=== PATIENT | male | born 1955 | race Caucasian/White ===

== ENCOUNTER → 2020-02-04 08:51 | Outpatient (CLI) | payer OTHER, SELFPAY ==
--- NOTE | ~2020-02-04 | CT_ITS ---
EXAMINATION: CT abdomen pelvis w con DATE: 02/04/2020 09:26 INDICATION: Left lower quadrant pain TECHNIQUE: Computed tomography (CT) of the abdomen and pelvis was performed with 100 cc Omnipaque 350 intravenous contrast. The dose-length product was 708.52 mGy-cm. Automated exposure control and iter ative reconstruction technique were employed. COMPARISON: None. FINDINGS: Lung bases unremarkable. Heart size normal. No significant pleural or pericardial effusion. The liver, spleen, pancreas, adrenal glands and right kidney are unremarkable. There is a subcentimet er hypodensity of the left kidney, most likely benign cysts. Gallbladder is present. Nonobstructive b owel gas pattern. Normal appendix. Evaluation of the pelvis limited by significant streak artifact fr om bilateral hip arthroplasties. No definite evidence for diverticulitis. Small fat-containing inguin al hernias. Moderate atherosclerosis without aneurysm. No lymphadenopathy. No acute osseous abnormali ty. There is moderate spondylosis at L5-S1. IMPRESSION: 1. No acute abdominal abnormality. No findings to account for patient's symptoms. Reviewed, dictated and finalized at location A. IMPRESSION: 1. No acute abdominal abnormality. No findings to account for patient's symptom s.
[2020-02-04 09:15] LABS: Estimated Glomerular Filt Rate > 60
== END ==
PROVIDERS: Visit Provider Family Medicine
DX: R10.32 Left lower quadrant pain (principal)
CPT/HCPCS: 36415; 74177; Q9967

== ENCOUNTER 2022-07-11 00:27 | Day surgery (SDC) | payer OTHER, MEDICARE, SELFPAY ==
[2022-06-28 13:07] VITALS: BMI 22.9
[2022-07-11 06:20] VITALS: BP 126/72; PULSE 64; RESP 18; TEMP 36.5; O2SAT 99; BMI 22.8
[2022-07-11] MEDS: LACTATED RINGERS 1,000 ML 150 ML IV CONT (06:23)
--- NOTE | 2022-07-11 07:13 | P.PNAN_ITS ---
Anes - Initial Pre Proc Eval Procedure: Operation Date: 07/11/22 07:30 Proposed Procedures p Screening Colonoscopy - Bernabe Mazariegos MD Date/Time: 07/11/22 07:13 Surgeon: Bernabe Mazariegos MD Pre Op Diagnosis: neoplasm screening Patient Data Age: 67 Gender: M Height: 1.85 m Weight: 78.8 kg Last Vital Signs Temp 97.7 F 07/11/22 06:20 Pulse 64 07/11/22 06:20 Resp 18 07/11/22 06:20 BP 126/72 07/11/22 06:20 Pulse Ox 99 07/11/22 06:20 O2 Del Method Room Air 07/11/22 06:20 Allergies Allergy/AdvReac Type Severity Reaction Status Date / Time No Known Allergies Allergy Unknown Verified 07/11/22 06:18 Patient hx anesthesia problems: none Family hx anesthesia problems: none Results Review: All pre-operative results and documents have been reviewed as part of the pre- operative evaluation. PMFSH Past Medical History Medical History HLD (hyperlipidemia) Surgical History Surgical History History of bilateral hip replacements History of release of tendon Family History Family History Mother Lung cancer Father Suicide Sibling Cancer Social History Social History (Updated 05/23/22 @ 15:11 by CESAR Harris) Smoking packs per day: 0.5 Smoking cigarettes per day: 10.0 Years smoked: 40 Smoking pack-years: 20.00 Smoking status: Current every day smoker Tobacco type: cigars Second hand tobacco smoke exposure: Yes Additional smoking assessment comments: 1-2 cigars daily Alcohol intake: never Substance use: never Substance use type: does not use Living arrangements: with family Spiritual care concerns: No Anes - Eval Final PreProcedure Day of Procedure 07/11/22 07:13 Patient weight: normal Heart: regular rate and rhythm Lungs: clear to auscultation Airway: Mallampati scale class II Neurological: alert and oriented Last oral intake: >/= 8 hours ASA classification: II Emergent: no Anesthetic plan: proceed Anesthesia type and monitoring: general GIVS and standard monitoring Results Review: All pre-operative results and documents have been reviewed as part of the pre- operative evaluation. Informed Consent: The patient's anesthetic plan and its attendant risks and benefits were discussed with the patient/family/POA. Questions were solicited and answers provided to the satisfaction of the patient/family/POA.
--- NOTE | 2022-07-11 07:19 | PM.IMHP ---
H&P: HPI History of Present Illness Date/Time: 07/11/22 07:19 Chief Complaint: Neoplasia screening. Narrative: This is a 67-year-old white male patient presents for screening colonoscopy. Patient's current weight appetite and bowel movements are normal. He denies abdominal pain. He has had no bleeding. Family history is noncontributory. Previous colonoscopy 2008 was unremarkable. Review of Systems Review of Systems: Review of systems noncontributory. PMFSH Past Medical History Medical History (Updated 07/11/22 @ 07:23 by Bernabe Mazariegos MD) HLD (hyperlipidemia) Surgical History Surgical History History of bilateral hip replacements History of release of tendon Family History Family History Mother Lung cancer Father Suicide Sibling Cancer Social History Social History (Updated 05/23/22 @ 15:11 by CESAR Harris) Smoking packs per day: 0.5 Smoking cigarettes per day: 10.0 Years smoked: 40 Smoking pack-years: 20.00 Smoking status: Current every day smoker Tobacco type: cigars Second hand tobacco smoke exposure: Yes Additional smoking assessment comments: 1-2 cigars daily Alcohol intake: never Substance use: never Substance use type: does not use Living arrangements: with family Spiritual care concerns: No Meds Home Medications and Allergies Allergies Allergy/AdvReac Type Severity Reaction Status Date / Time No Known Allergies Allergy Unknown Verified 07/11/22 06:18 Vital Signs Vital Signs - 24 hr 07/11/22 06:20 Temperature 97.7 F Pulse Rate 64 Respiratory Rate 18 Blood Pressure 126/72 Pulse Oximetry 99 Oxygen Delivery Room Air Exam Narrative: Physical exam reveals patient to be alert. Vital signs stable. HEENT exam is unremarkable. Lungs are clear to auscultation and percussion. Heart is without murmur or extra sounds. Abdominal exam bowel sounds present soft nontender with no organomegaly. Digital external rectal exam is normal. Assessment and Plan Assessment and plan (1) Encounter for screening colonoscopy: Code(s): Z12.11 - Encounter for screening for malignant neoplasm of colon Status: Acute Assessment and Plan: Patient presents today for screening colonoscopy. He appears to be average risk for colon polyps.
[2022-07-11 07:57] VITALS: BP 100/58; PULSE 56; RESP 20; O2SAT 95
[2022-07-11 08:10] VITALS: BP 109/69; PULSE 64; RESP 22; O2SAT 96
[2022-07-11 08:20] VITALS: BP 127/72; PULSE 57; RESP 18; O2SAT 99
== END 2022-07-11 08:23 | disposition home or self-care (01) ==
PROVIDERS: PCP Family Medicine; Visit Provider Internal Medicine Gastroenterology
PROC: 0DJD8ZZ Inspection of Lower Intestinal Tract, Via Natural or Artificial Opening Endoscopic (ICD-10-PCS; CPT 45378; principal; 2022-07-11 07:30)
DX: Z12.11 Encounter for screening for malignant neoplasm of colon (principal); D12.5 Benign neoplasm of sigmoid colon; K64.8 Other hemorrhoids; E78.5 Hyperlipidemia, unspecified; F17.210 Nicotine dependence, cigarettes, uncomplicated
CPT/HCPCS: 45385; 88305; J2704; J7120

== ENCOUNTER → 2022-09-01 07:46 | Outpatient (CLI) | payer OTHER, MEDICARE, SELFPAY ==
--- NOTE | ~2022-09-01 | CT_ITS ---
EXAMINATION: CT lung screening DATE: 09/01/2022 08:20 INDICATION: Personal history nicotine dependence, current smoker with 20 pack year history TECHNIQUE: Computed tomography (CT) of the chest was performed without intravenous contrast. The dose -length product (DLP) was 102.54 mGy-cm. Automated exposure control and iterative reconstruction tech [employer] were employed. COMPARISON: None FINDINGS: There is mild emphysema. There is a 4 mm nodule of the right lower lobe on image 75. There are is a triangular nodule in the right major fissure on image 76. There are smaller scattered pulmon elvira nodules which measure 1 to 2 mm. The lungs are free of focal airspace opacities. No pleural effus ion or pneumothorax. There are mild subpleural reticular and groundglass opacities with a lower lung zone predominance which can reflect chronic interstitial lung disease in a pattern of nonspecific int erstitial pneumonia (NSIP). There is moderate thoracic spondylosis. IMPRESSION: 1. Lung-RADS category 2: Benign appearance or behavior. Continue annual screening with noncontrast lo w-dose chest CT in 12 months. Reviewed, dictated and finalized at location B. IMPRESSION: 1. Lung-RADS category 2: Benign appearance or behavior. Continue annual screeni ng with noncontrast low-dose chest CT in 12 months.
--- NOTE | ~2022-09-01 | US_ITS ---
EXAMINATION: US aorta [facility] DATE: 09/01/2022 08:23 INDICATION: Abdominal aortic aneurysm screening, tobacco use, hypercholesterolemia TECHNIQUE: Grayscale, color Doppler, and pulsed Doppler images of the aorta and common iliac arteries were obtained. COMPARISON: None. FINDINGS: Maximum vascular dimensions are as follows: Proximal aorta: 2.9 cm Mid aorta: 2.1 cm Distal aorta: 2.2 cm Right common iliac artery: 1.3 cm Left common iliac artery: 1.5 cm There is no evidence of abdominal aortic aneurysm. IMPRESSION: 1. No sonographic evidence of abdominal aortic aneurysm. Reviewed, dictated and finalized at location B.
== END ==
PROVIDERS: PCP Family Medicine; Visit Provider Physician Assistant Medical
DX: Z12.2 Encounter for screening for malignant neoplasm of respiratory organs (principal); F17.210 Nicotine dependence, cigarettes, uncomplicated; E78.00 Pure hypercholesterolemia, unspecified; Z13.6 Encounter for screening for cardiovascular disorders
CPT/HCPCS: 71271; 76706

== ENCOUNTER 2025-06-03 08:17 | Outpatient (CLI) | payer MEDICARE, SELFPAY ==
--- NOTE | ~2025-06-03 | MR_ITS ---
EXAMINATION: MR brain/brain stem wo/w con DATE: 06/03/2025 09:33 INDICATION: Transient cerebral ischemic attack TECHNIQUE: Magnetic resonance imaging (MRI) of the brain and brainstem was performed without and with 17 mL Multihance intravenous contrast. Sequences included sagittal and axial T1-weighted SE, axial d iffusion-weighted FS SE, axial 3D SWAN, axial T2-weighted FLAIR, and axial T2-weighted FSE. Postcontr ast axial, sagittal and coronal T1-weighted SE was obtained. Apparent diffusion coefficient (ADC) map s were created. COMPARISON: None. FINDINGS: There are couple small regions of restricted diffusion with increased T2 signal at the right insula a nd a few tiny foci of restricted diffusion also with increased T2 signal in the willis radiata white matter of the periventricular posterior right frontal lobe consistent with acute infarcts in the righ t middle cerebral artery vascular distribution. No intracranial hemorrhage or abnormal intracranial m ass lesion. There are a few additional scattered small foci of nonspecific increased T2-weighted sign al intensity in the cerebral white matter, predominantly involving the deep and periventricular white matter. There are no intraparenchymal signal abnormalities seen on the other pulse sequences. The ve ntricles are symmetric and normal in size. There are no abnormal extra-axial fluid collections. Absen t flow void at the right carotid canal and carotid siphon consistent with occlusion versus slow flow in the right internal carotid artery. Flow voids are seen more distally at the A1 and M1 segments of the right anterior and middle cerebral arteries consistent with expected patency and likely collatera l resupply. Prominent mucosal thickening in the bilateral ethmoid and maxillary sinuses with large mu cous retention cyst in the right maxillary sinus. There are some bubbly mucus in the left sphenoid si nus. Visualized orbits and soft tissues are unremarkable. There are no areas of abnormal enhancement on the post contrast images. IMPRESSION: 1. Occlusion versus slow flow with absent flow void at the right internal carotid artery at the carot id canal and carotid siphon. There appears be resupply more distally with patent M1 and A1 segments o f the right middle and anterior cerebral arteries respectively. 2. A few small acute infarcts in the right middle cerebral artery vascular distribution including at the right insula and the right frontal lobe willis radiata. 3. Sinus disease. Reviewed, dictated and finalized at location A. IMPRESSION: 1. Occlusion versus slow flow with absent flow void at the right internal carot id artery at the carotid canal and carotid siphon. There appears be resupply mo re distally with patent M1 and A1 segments of the right middle and anterior cer ebral arteries respectively. 2. A few small acute infarcts in the right middle cerebral artery vascular dist ribution including at the right insula and the right frontal lobe willis radiat a. 3. Sinus disease.
--- OUTSIDE RECORDS SUMMARY | 2025-06-03 08:20 | XMS_ITS ---
Author Organization [facility] Address [address] [place], [place] [id number] Care Team Providers Care Lapidary Apprentice Name Role Phone Anita Roach Unavailable Unavailable BA CAMEJO Unavailable [phone] REASON FOR VISIT neuropathy check Encounters Encounter Location Date Provider Diagnosis [facility] [place] [address] [facility] [address] [place], [place] [id number] 09/15/2024 BA CAMEJO Plan Of Treatment No Information Progress Notes * RADHA OzscottDOB: (70 yo M)Acc No.[id number]:09/15/2024 Patient: Guzman POSADA Provider: Iain Camejo DPM :1955 A ge:69 Y S ex:Male Date:09/15/2024 Address:[facility] [address], [facility] Subjective: * Chief Complaints: * 1 . Neuropathy check. * Medical History: Objective: * Vitals: Assessment: Plan: * Treatment: * Billing Information: * Visit Code: * Procedure Codes: * Electronic signature of BA CAMEJO DPM on 06/03/2025 at 08:20 AM CDT Sign off status: Pending * Provider: Iain Camejo DPM Date: 11/15/2023 Generated for Printi ng/Faxing/eTransmitting on: 0 06/03/2025 08:20 AM CDT
--- OUTSIDE RECORDS SUMMARY | 2025-06-03 08:20 | XMS_ITS | Encounter Summary ---
Author Organization [facility] Address [address] [place] [place] [address] Care Team Providers Care Director Institution Name Role Phone Anita Roach MD Primary Care Provider [phone] Encounter Details Date Type Department Care Team (Late st Contact Info) Description 11/21/2023 Lab Requisition [facility] - DermPath Lab [address] [facility] [place] [address] Richard Mena MD [facility] DERMATOLOG[facility] [address] [place] [phone] Basal cell carcinoma of skin of other part of trunk Social History Tobacco Use Types Packs/Day Years Used Date Smoking Tobacco: Never Assessed Sex and Gender Information Value Date Recorded Sex Assigned at Not on file Legal Sex Male 8:18 AM CDT Gender Identity Not on file Sexual Orientation Not on file documented as of this encounter Plan of Treatment Not on file documented as of this encounter Visit Diagnoses Diagnosis Basal cell carcinoma of skin of other part of trunk documented in this encounter Care Teams Director Institution Relationship Specialty Start Date End Date Anita Roach MD [address] [place] [address] PCP - General 07/14/22 documented as of this encounter
--- OUTSIDE RECORDS SUMMARY | 2025-06-03 08:20 | XMS_ITS | Encounter Summary ---
Author Organization [facility] Address [address] [facility] [place] [address] Care Team Providers Care Marketing Effectiveness Manager Name Role Phone Anita Roach MD Primary Care Provider [phone] Encounter Details Date Type Department Care Team (Late st Contact Info) Description 10/23/2023 Lab Requisition [facility] - DermPath Lab [address] [facility] [place] [phone] Richard Mena MD [facility] DERMATOLOGY [address] [place] [phone] Squamous cell carcinoma of skin of other part [...] on file documented as of this encounter Procedures Procedure Name Priority Date/Time Associated Diagnosis Comments DERMATOPATHOLOGY Routine 10/23/2023 3:33 AM TURN OUT Squamous cell carcinoma of skin of other part of trunk documented in this encounter Results * DERMATOPATHOLOGY (10/23/2023 3:33 AM TURN OUT) Case Report Dermatopathology Report Case: [id number] Authorizing Provider: Richard Mena MD Collected: 10/23/2023 03:33 AM Ordering Location: [facility] DermPath Lab Received: 10/24/2023 12:55 PM Pathologist: Zainab Wilson MD Specimen: Skin, inferior anterior neck 4:35 PM TURN OUT DERMATOPATHOLOGY LABORATORY Final Diagnosis Specimen A. SKIN, inferior anterior neck: KERATOACANTHOMA WITH FEATURES OF REGRESSION (L85.8) NOT PRESENT AT MARGIN DERMAL SCAR (L90.5) (see microscopic description) 3 4:35 PM [facility] DERMATOPATHOLOGY LABORATORY at 1635 TURN OUT Clinical History Squamous Cell Carcinoma. Check Margin 3 4:35 PM [facility] DERMATOPATHOLOGY LABORATORY Gross Description Specimen A: Received is one formalin filled container labeled with the patient's name and designated inferior anterior neck. The specimen consists of a non-oriented ellipse of skin measuring [id number] mm.Also,there a lesion measuring 87w58q34 mm. The margin is inked green. The 12 o'clock and 6 o'clock tips are submitted in cassette 1. The remainder of the ellipse is serially sectioned and submitted in cassette 2 - 5. Jar 0. 3 4:35 PM [facility] DERMATOPATHOLOGY LABORATORY Microscopic Description Specimen A. SKIN, inferior anterior neck: There is a cup-shaped lesion with central hyperkeratosis with elements of parakeratosis. The epithelial cells making up the ellsworth of the cup show abundant eosinophilic cytoplasm. There is immaturity of the keratinocytes in the outermost layers of this epithelium. In the dermis there is marked fibroplasia with a mixed inflammatory infiltrate containing eosinophils. There is a mass of parakeratosis that has become detached from the main specimen. This lesion is not present at the margin of the specimen. There are fibroblasts and collagen bundles oriented parallel to the skin surface with elongated blood vessels, some of which are oriented perpendicular to the skin surface. Additional deeper sections were obtained and reviewed. 3 4:35 PM [facility] DERMATOPATHOLOGY LABORATORY Disclaimer An external and internal positive and negative controls are appropriate for the histochemical, immunohistochemical and immunofluorescence stain(s) in this case (if any), except where stated explicitly. The performance characteristics of the stain(s) cited in this report were developed and its performance characteristic determined by the Dermatopathology Laboratory at [facility], directed by Dr. Myrtle Jules. These tests need not be, and therefore are not, approved by the [place] Food and Drug Administration. The tests are used for clinical purposes. Billing Codes Specimen Charges Stain Charges 87879 1 3 4:35 PM TURN OUT DERMATOPATHOLOGY LABORATORY Embedded Images 3 4:35 PM TURN OUT DERMATOPATHOLOGY LABORATORY Pathology/Cytolo gy TISSUE SPECIMEN FROM SKIN / Unknown 10/23/2023 3:33 AM TURN OUT 10/24/2023 12:55 PM TURN OUT Richard Mena MD LAB - PATHOLOGY/CYTOLOGY [facility]DE [facility]ILAR[facility] Final Result DERMATOPATHOLOGY LABORATORY [facility] - Department of Dermatology Specialized Medicine [address] [place] [address], [address] [phone] documented in this encounter Visit Diagnoses Diagnosis Squamous cell carcinoma of skin of other part of trunk documented in this encounter Care Teams Marketing Effectiveness Manager Relationship Specialty Start Date End Date Anita Roach MD [address] [place] [address] PCP - General 07/14/22 documented as of this encounter
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
--- OUTSIDE RECORDS SUMMARY | 2025-06-03 08:20 | XMS_ITS | Clinical Summary ---
Author Organization [facility] Address [address] [place] [id number] Care Team Providers Care Field Crop Technical Officer Name Role Phone Anita Roach MD Primary Care Provider [phone] Allergies No known active allergies Medications No known medications Active Problems Problem Noted Date Diagnosed Date Osteoarthritis of hip 09/23/2015 Surgical follow-up care 09/06/2012 Immunizations Immunization Administration Dates Next Due Influenza, Unspecified 11/30/2015 Medical History Medical History Date Comments Encounter for other orthopedic aftercare Orthopedic aftercare - (Added by TW Conv) Aftercare following joint re placement surgery Aftercare following joint re placement - (Added by TW Conv) Social History Tobacco Use Types Packs/Day Years Used Date Smoking Tobacco: Former Personal Safety Answer Date Recorded Getting School Help Needed Not on file 01/08 Sex and Gender Information Value Date Recorded Sex Assigned at Not on file Legal Sex Male 9:25 AM ROLL UP GUIDER OPERATOR Gender Identity Not on file Sexual Orientation Not on file Obstetrics History Last Filed Vital Signs Vital Sign Reading Time Taken Comments Blood Pressure 122/70 11/30/2015 3:15 PM ROLL UP GUIDER OPERATOR Pulse 80 11/30/2015 3:15 PM ROLL UP GUIDER OPERATOR Temperature - - Respiratory Rate - - Oxygen Saturation 95% 11/30/2015 3:15 PM ROLL UP GUIDER OPERATOR Inhaled Oxygen Concentration - - Weight 88.5 kg (195 lb) 11/30/2015 12:56 PM ROLL UP GUIDER OPERATOR Height 185.4 cm (6' 1) 11/30/2015 12:56 PM ROLL UP GUIDER OPERATOR Body Mass Index 25.73 11/30/2015 12:56 PM ROLL UP GUIDER OPERATOR Plan of Treatment Not on file Insurance [facility] Care Teams Field Crop Technical Officer Relationship Specialty Start Date End Date Anita Roach MD PCP - General Family Medicine 07/04/21
--- OUTSIDE RECORDS SUMMARY | 2025-06-03 08:20 | XMS_ITS | Referral Summary ---
Author Organization [facility] Address [address] [place] [id number] Care Team Providers Care Synthetic Cloth Binding Cutter Name Role Phone Anita Roach MD Primary Care Provider [phone] Allergies No known active allergies Medications No known medications Active Problems Problem Noted Date Diagnosed Date Osteoarthritis of hip 09/23/2015 Surgical follow-up care 09/06/2012 Immunizations Immunization Administration Dates Next Due Influenza, Unspecified 11/30/2015 Social History Tobacco Use Types Packs/Day Years Used Date Smoking Tobacco: Former Personal Safety Answer Date Recorded Getting School Help Needed Not on file 01/08 Sex and Gender Information Value Date Recorded Sex Assigned at Not on file Legal Sex Male 9:25 AM PLATE GAUGER Gender Identity Not on file Sexual Orientation Not on file Last Filed Vital Signs Vital Sign Reading Time Taken Comments Blood Pressure 122/70 11/30/2015 3:15 PM PLATE GAUGER Pulse 80 11/30/2015 3:15 PM PLATE GAUGER Temperature - - Respiratory Rate - - Oxygen Saturation 95% 11/30/2015 3:15 PM PLATE GAUGER Inhaled Oxygen Concentration - - Weight 88.5 kg (195 lb) 11/30/2015 12:56 PM PLATE GAUGER Height 185.4 cm (6' 1) 11/30/2015 12:56 PM PLATE GAUGER Body Mass Index 25.73 11/30/2015 12:56 PM PLATE GAUGER Plan of Treatment Not on file Insurance [facility] CHOICE PLUS [facility] [id number] Care Teams Synthetic Cloth Binding Cutter Relationship Specialty Start Date End Date Anita Roach MD PCP - General Family Medicine 07/04/21
--- OUTSIDE RECORDS SUMMARY | 2025-06-03 08:20 | XMS_ITS | Encounter Summary ---
Author Organization [facility] Address [address] [facility] [place] [address] Care Team Providers Care Central Office Trouble Shooter Name Role Phone Anita Roach MD Primary Care Provider [phone] Encounter Details Date Type Department Care Team (Late st Contact Info) Description 08/08/2023 Lab Requisition [facility] - DermPath Lab [address] [place] [id number] Yamile Dailey MD [address] [place] [address] Neoplasm of uncertain behavior of skin Social History Tobacco Use Types Packs/Day Years [...] Priority Date/Time Associated Diagnosis Comments DERMATOPATHOLOGY Routine 08/08/2023 12:0 0 AM CDT Neoplasm of uncertain behavior of skin documented in this encounter Results * DERMATOPATHOLOGY (08/08/2023 12:00 AM CDT) Case Report Dermatopathology Report Case: [id number] Authorizing Provider: Yamile Dailey MD Collected: 08/08/2023 12:00 AM Ordering Location: [facility] Lab Received: 08/09/2023 04:44 PM Pathologist: Annmarie Aguero MD Specimens: A) - Skin, inferior anterior neck B) - Skin, left upper back 11:15 AM CDT DERMATOPATHOLOGY LABORATORY Final Diagnosis Specimen A. SKIN, inferior anterior neck: SQUAMOUS CELL CARCINOMA, WELL DIFFERENTIATED (C44.42) Specimen B. SKIN, left upper back: BASAL CELL CARCINOMA, PIGMENTED AND NODULAR (C44.519) 11:15 AM T DERMATOPATHOLOGY LABORATORY at 1115 CDT Clinical History A: Squamous Cell Carcinoma B: Basal Cell Carcinoma vs. Irritated Seborrheic Keratosis 11:15 AM CDT DERMATOPATHOLOGY LABORATORY Gross Description Specimen A: Received is one formalin filled container labeled with the patient's name and designated inferior anterior neck. The specimen consists of a shave biopsy measuring 51i02p3 mm. Jar 0. Specimen B: Received is one formalin filled container labeled with the patient's name and designated left upper back. The specimen consists of a shave biopsy measuring 5x4x1 mm. Jar 0. 11:15 AM T DERMATOPATHOLOGY LABORATORY Microscopic Description Specimen A. SKIN, inferior anterior neck: Arising in the epidermis and extending into the dermis there are irregularly shaped aggregates of keratinocytes showing evidence of premature cornification. Specimen B. SKIN, left upper back: There are aggregates of basaloid cells with a high nuclear to cytoplasmic ratio and peripheral palisading. There is abundant melanin. 11:15 AM T DERMATOPATHOLOGY LABORATORY Disclaimer An external and internal positive and negative controls are appropriate for the histochemical, immunohistochemical and immunofluorescence stain(s) in this case (if any), except where stated explicitly. The performance characteristics of the stain(s) cited in this report were developed and its performance characteristic determined by the Dermatopathology Laboratory at [facility], directed by Dr. Myrtle Jules. These tests need not be, and therefore are not, approved by the [place] Food and Drug Administration. The tests are used for clinical purposes. Billing Codes Specimen Charges Stain Charges 18656 26025 1 1 11:15 AM CDT DERMATOPATHOLOGY LABORATORY Embedded Images 11:15 AM T DERMATOPATHOLOGY LABORATORY Pathology/Cytology TISSUE SPECIMEN FROM SKIN / Unknown 08/08/2023 08/09/2023 4:44 PM CDT Miscellaneous samples (specimen) TISSUE SPECIMEN FROM SKIN / Unknown 08/08/2023 08/09/2023 4:44 PM CDT us Yamile Dailey MD LAB - PATHOLOGY/CYTOLOGY ORDERAB LES Final Result DERMATOPATHOLOGY LABORATORY [facility] - Department of Dermatology [facility] [address] [place] [address], [address] [phone] documented in this encounter Visit Diagnoses Diagnosis Neoplasm of uncertain behavior of skin documented in this encounter Care Teams Central Office Trouble Shooter Relationship Specialty Start Date End Date Anita Roach MD [address] [place] [address] PCP - General 07/14/22 documented as of this encounter
--- OUTSIDE RECORDS SUMMARY | 2025-06-03 08:20 | XMS_ITS | Patient Health Record ---
Author Organization [facility] Address [address] [place], [place] [id number] Care Team Providers Care Painter And Decorator Apprentice Name Role Phone Anita Roach Unavailable Unavailable BA CAMEJO Unavailable [phone] Allergies No Known Allergies Reason For Referral No Information Vital Signs Weight-kg 83.91 kg 06/16/2024 Weight 185 lbs 06/16/2024 Encounters Encounter Location Date Provider Diagnosis [facility] [address] [place], [place] [id number] 06/16/2024 BA CAMEJO Injury of unspecifie d nerve at lower leg level, right leg, initial encounter S84.91XA ; Other hereditary and idiopathic neuropathies G60.8 and Pain in right foot M79.671 Assessments Encounter Date Diagnosis (ICD Code) Assessment Notes Treatment Notes Treatment Clinical Notes Section Notes 06/16/2024 Other hereditary and idiopathic neuropathies (ICD-10 - G60.8) 06/16/2024 Injury of unspecified nerve at lower [...] as an under the tongue lozenge. 06/16/2024 Pain in right foot (ICD-10 - M79.671) Plan Of Treatment No Information Insurance Providers Payer Name Payer Address Payer Phone Subscriber Number Group Number Insured Name Patient Relationship to Insured Coverage Start Date Coverage End Date Medicare Part B [facility] [address] [place] [id number] Guzman Garcia Self - patient is the insured Medical (General) History Medical History History ICD Code skin cancer
--- OUTSIDE RECORDS SUMMARY | 2025-06-03 08:21 | XMS_ITS | Clinical Summary ---
Author Organization [facility] Address [address] [place] [address] Care Team Providers Care Insurance Legal Assistant Name Role Phone Anita Roach MD Primary Care Provider [phone] Source Comments [facility],non-owned Affiliates and Associated Physician Practices is amultiple site organization consisting of ambulatory clinics and hospital sitesin [place], [place], [place]. This disclosure is being madepursuant to the Care Everywhere program and may not contain all information available regarding this patient. Last updated 18.[employer] [facility] Allergies No known active allergies Active Problems Problem Noted Date Diagnosed Date TIA (transient ischemic attack) 05/25/2025 Smoker 05/25/2025 Other hyperlipidemia 05/25/2025 Carotid stenosis, asymptomatic, right 05/25/2025 Osteoarthritis of hip 09/23/2015 Surgical follow-up care 09/06/2012 Encounters Date Type Department Care Team Description 05/25/2025 10:55 AM CDT - 05/25/2025 9:42 PM CDT Emergency [facility] EMERGENCY DEPARTMENT [address] [place] [address] Indio Leavitt MD Linares, Guillermo, MD Demars, Andrew Hamilton, MD TIA (transient ischemic attack) (Primary Dx); Weakness Discharge Disposition: Left Against Medical Advice/Discontinued Care 05/25/2025 Travel from Last 3 Months Social History Tobacco Use Types Packs/Day Years Used Date Smoking Tobacco: Never Assessed Sex and Gender Information Value Date Recorded Sex Assigned at Not on file Legal Sex Male 8:18 AM CDT Gender Identity Not on file Sexual Orientation Not on file Last Filed Vital Signs Vital Sign Reading Time Taken Comments Blood Pressure 154/92 05/25/2025 10:54 AM CDT Pulse 70 05/25/2025 10:54 AM CDT Temperature 36.9 C (98.5 F) 05/25/2025 10:54 AM CDT Respiratory Rate 21 05/25/2025 10:54 AM CDT Oxygen Saturation 97% 05/25/2025 10:54 AM CDT Inhaled Oxygen Concentration - - Weight 80.3 kg (177 lb) 05/25/2025 3:20 PM CDT Height 185.4 cm (6' 1) 05/25/2025 3:20 PM CDT Body Mass Index 23.35 05/25/2025 3:20 PM CDT Plan of Treatment Health Maintenance Due Date Last Done Comments COLOGUARD (AGES 45-75) - COLON CA SCREENING 1957 COLON MONITORING 1957 COLONOSCOPY - COLON CA SCREENING 1957 CT COLONOGRAPHY - COLON CA SCREENING 1957 Colorectal Cancer Screening 1957 FIT - COLON CA SCREENING 1957 FLEX SIG - COLON CA SCREENING 1957 MEDICARE AWV 12 MONTHS 1957 HEPATITIS C SCREENING 04/08/1975 DTAP/TDAP/TD VACCINES (1 - Tdap) 1976 PNEUMOCOCCAL VACCINE 50+ (1 of 1 - PCV) 2007 ZOSTER VACCINE (1 of 2) 2007 Respiratory Syncytial Virus (RSV) Vaccine Pt: or over 60 yrs (1 - Risk 60-74 years 1-dose series) 2017 DEPRESSION SCREENING 11/12/2024 COVID-19 VACCINE ( season) 2025 08/27/2024, 09/09/2022, 04/21/2022, Additional history exists INFLUENZA VACCINE (#1) 2025 3, 08/16/2020, 11/30/2015 LIPID TESTING 05/25/2030 05/25/2025 HEPATITIS B VACCINE Aged Out No longe r eligible based on patient's age to complete this topic HIB VACCINE Aged Out No longer eligi ble based on patient's age to complete this topic HPV VACCINE Aged Out No longer eligi ble based on patient's age to complete this topic MENINGOCOCCAL (Group B) VACCINE SHARED DECISION-MAKING Aged Out No longer eligible based on patient's age to complete this topic MENINGOCOCCAL GROUPS A/C/Y/W VACCINE Aged Out No longer eligible based on patient's age to complete this topic Procedures Procedure Name Priority Date/Time Associated Diagnosis Comments VAS TRANSCRANIAL DOPPLER COMP Routine 05/25/2025 3:18 PM CDT TIA (transient ischemic attack) VAS CAROTID DUPLEX BILATERAL Routine 05/25/2025 3:18 PM CDT TIA (transient ischemic attack) PHOSPHORUS BLOOD STAT 05/25/2025 2:23 PM CDT Weakness TIA (transient ischemic attack) MAGNESIUM BLOOD STAT 05/25/2025 2:23 PM CDT Weakness TIA (transient ischemic attack) LIPID PROFILE STAT 05/25/2025 2:23 PM CDT Weakness TIA (transient ischemic attack) GLUCOSE - POINT OF CARE Routine 05/25/2025 11:22 AM CDT TROPONIN-I HIGH SENSITIVE STAT 05/25/2025 11:17 AM CDT PTT STAT 05/25/2025 11:17 AM CDT PT-INR STAT 05/25/2025 11:17 AM CDT COMPREHENSIVE METABOLIC PANEL STAT 05/25/2025 11:17 AM CDT CBC W AUTO DIFFERENTIAL STAT 05/25/2025 11:[address] ANGIO BRAIN NECK STROKE STAT 05/25/2025 11:15 AM CDT Weakness ISTAT CREATININE Routine 05/25/2025 11:0 7 AM CDT INR WHOLE BLOOD - POINT OF CARE (IP) STROKE Routine 05/25/2025 11:[address] BRAIN STROKE STAT 05/25/2025 11:01 AM CDT Weakness from Last 3 Months Results * VAS Transcranial Doppler Comp (05/25/2025 3:18 PM CDT) Anatomical Region Laterality Modality Head Ultrasound 05/25/2025 2:45 PM CDT Narrative Procedure Note Pato Cuevas MD - 05/25/2025 Indio Leavitt MD VASCULAR LAB ORDERABLES Edited Result - Final * VAS Carotid Duplex Bilateral (05/25/2025 3:18 PM CDT) Anatomical Region Laterality Modality Neck Ultrasound 05/25/2025 2:32 PM CDT Narrative Procedure Note Carrington Myers MD - 05/26/2025 Indio Leavitt MD VASCULAR LAB ORDERABLES Edited Result - Final * PHOSPHORUS BLOOD (05/25/2025 2:23 PM CDT) Phosphorus 3.2 2.8 - 5.1 mg/dL 05/25/2025 3:25 PM CDT [facility] Blood BLOOD SPECIMEN / Unknown Venipuncture / Unknown 05/25/2025 2:23 PM CDT 05/25/2025 2:38 PM CDT Indio Leavitt MD LAB - CHEMISTRY ORDERABLES Fin al Result [address] [address], [facility] [phone] * MAGNESIUM BLOOD (05/25/2025 2:23 PM CDT) Magnesium 2.2 1.6 - 2.6 mg/dL 05/25/2025 3:25 PM CDT [facility] Blood BLOOD SPECIMEN / Unknown Venipuncture / Unknown 05/25/2025 2:23 PM CDT 05/25/2025 2:38 PM CDT us Indio Leavitt MD LAB - CHEMISTRY ORDERABLES Fin al Result [facility] [address] [place] [address], [place] [phone] * (ABNORMAL) LIPID PROFILE (05/25/2025 2:23 PM CDT) Cholesterol Total 235(H) <200 mg/dL 05/25/2025 3:25 PM CDT [facility] HDL 37(L) >40 mg/dL 05/25/2025 3:25 PM CDT [facility] Comment: ATP III Classification of HDL Cholesterol: <40 mg/dL: Considered a major risk factor. >60 mg/dL: Considered a negative risk factor. LDL Calculated 170(H) <100 mg/dL 05/25/2025 3:25 PM CDT [facility] Comment: ATP III Classification of LDL Cholesterol: <100 mg/dL: Optimal 100 - 129 mg/dL: Near Optimal/Above Optimal 130 - 159 mg/dL: Borderline High 160 - 189 mg/dL: High >190 mg/dL: Very High LDL is calculated using the Friedewald equation. Triglycerides 139 <150 mg/dL 05/25/2025 3:25 PM T [facility] Comment: ATP III Classification of Triglycerides: <150 mg/dL: Normal 150 - 199 mg/dL: Borderline High 200 - 400 mg/dL: High >500 mg/dL: Very High Blood BLOOD SPECIMEN / Unknown Venipuncture / Unknown 05/25/2025 2:23 PM CDT 05/25/2025 2:38 PM CDT us Indio Leavitt MD LAB - CHEMISTRY ORDERABLES Fin al Result [facility] [address] [place] [address], [place] [phone] * (ABNORMAL) GLUCOSE - POINT OF CARE (05/25/2025 11:22 AM CDT) Glucose WB/POC 109(H) 70 - 99 mg/dL 05/25/2025 11:26 AM CDT [facility] Specimen Type Venous 05/25/2025 11:26 AM CDT [facility] Blood BLOOD SPECIMEN / Unknown 05/25/2025 11:22 AM CDT 05/25/2025 11:26 AM CDT us Indio Leavitt MD LAB - POINT OF CARE ORDERABLES Final Result Performing Organization Address City/[facility]/ZIP Co de Phone Number [address] [address], [facility] [phone] * TROPONIN-I HIGH SENSITIVE (05/25/2025 11:17 AM CDT) Troponin I High Sensitive <3 <=35 ng/L 05/25/2025 12:14 PM CDT [facility] Blood BLOOD SPECIMEN / Unknown Venipuncture / Unknown 05/25/2025 11:17 AM CDT 05/25/2025 11:46 AM CDT us Indio Leavitt MD LAB - CHEMISTRY ORDERABLES Fin al Result Performing Organization Address [facility]/ZIP Co de Phone Number [address] [address], [place] [phone] * PTT (05/25/2025 11:17 AM CDT) APTT 28.7 23.0 - 38.4 Seconds 05/25/2025 12:05 PM T [facility] Comment:Suggested therapeuti c range for full dose I.V. unfractionated heparin therapy for venous thromboembolism is 71 to 109 seconds. Blood BLOOD SPECIMEN / Unknown Venipuncture / Unknown 05/25/2025 11:17 AM CDT 05/25/2025 11:21 AM CDT us Indio Leavitt MD LAB - COAGULATION ORDERABLES F inal Result Performing Organization Address City/[facility]/ZIP Co de Phone Number [address] [address], [place] [phone] * PT-INR (05/25/2025 11:17 AM CDT) PT 13.9 12.1 - 14.8 Seconds 05/25/2025 12:05 PM [facility] INR 1.1 See Comment 05/25/2025 12:05 PM [facility] Comment:The suggested therap eutic range for standard coumadin (warfarin) therapy is an INR of 2.0-3.0. For high-risk patients (Mechanical Mitral Valve Prosthesis, etc.), the suggested prophylactic therapeutic range is an INR of 2.5-3.5. Blood BLOOD SPECIMEN / Unknown Venipuncture / Unknown 05/25/2025 11:17 AM CDT 05/25/2025 11:21 AM CDT us Indio Leavitt MD LAB - COAGULATION ORDERABLES F inal Result [address] [address], [facility] [phone] * (ABNORMAL) CBC W AUTO DIFFERENTIAL (05/25/2025 11:17 AM CDT) Pathologist [facility] WBC 6.4 4.0 - 10.7 x10E9/L 05/25/2025 11:43 AM [facility] RBC Count 4.28(L) 4.30 - 5.80 x10E12/L 05/25/2025 11:43 AM [facility] Hemoglobin 13.2(L) 13.3 - 17.5 g/dL 05/25/2025 11:43 AM [facility] Hematocrit 39.7 38.7 - 51.1 % 05/25/2025 11:43 AM [facility] MCV 92.8 80.0 - 98.0 fL 05/25/2025 11:43 AM [facility] MCH 30.8 26.7 - 33.6 pg 05/25/2025 11:43 AM [facility] MCHC 33.2 31.7 - 36.3 g/dL 05/25/2025 11:43 AM [facility] RDW-CV 12.5 11.3 - 14.8 % 05/25/2025 11:43 AM [facility] Platelet Count 200 150 - 420 x10E9/L 05/25/2025 11:43 AM [facility] MPV 10.8 7.8 - 11.4 fL 05/25/2025 11:43 AM [facility] Neutrophil % 49.7 41.0 - 74.0 % 05/25/2025 11:43 AM [facility] Lymphocyte % 36.6 17.0 - 47.0 % 05/25/2025 11:43 AM [facility] Monocyte % 7.7 3.0 - 11.0 % 05/25/2025 11:43 AM [facility] Eosinophil % 5.6 0.0 - 7.0 % 05/25/2025 11:43 AM [facility] Basophil % 0.2 0.0 - 1.6 % 05/25/2025 11:43 AM [facility] Immature Granulocytes % 0.2 0.0 - 1.0 % 05/25/2025 11:43 AM [facility] Neutrophil Absolute 3.19 1.60 - 7.50 x10E9/L 05/25/2025 11:43 AM [facility] Lymphocyte Absolute 2.34 1.00 - 4.40 x10E9/L 05/25/2025 11:43 AM [facility] Monocyte Absolute 0.49 0.15 - 1.00 x10E9/L 05/25/2025 11:43 AM [facility] Eosinophil Absolute 0.36 0.00 - 0.60 x10E9/L 05/25/2025 11:43 AM [facility] Basophil Absolute 0.01 0.00 - 0.13 x10E9/L 05/25/2025 11:43 AM [facility] Blood BLOOD SPECIMEN / Unknown Venipuncture / Unknown 05/25/2025 11:17 AM CDT 05/25/2025 11:32 AM CDT us Indio Leavitt MD LAB - HEMATOLOGY ORDERABLES Fi nal Result [facility] [address] [place] [address], [facility] [phone] * (ABNORMAL) COMPREHENSIVE METABOLIC PANEL (05/25/2025 11:17 AM [facility]) BUN 20 7 - 26 mg/dL 05/25/2025 12:06 PM [facility] Creatinine 0.84 0.71 - 1.16 mg/dL 05/25/2025 12:06 PM [facility] Sodium 138 136 - 145 mmol/L 05/25/2025 12:06 PM [facility] Potassium 3.9 3.5 - 4.5 mmol/L 05/25/2025 12:06 PM [facility] Chloride 110(H) 98 - 107 mmol/L 05/25/2025 12:06 PM [facility] CO2 27 22 - 29 mmol/L 05/25/2025 12:06 PM [facility] Glucose 102(H) 70 - 99 mg/dL 05/25/2025 12:06 PM [facility] Calcium 8.5 8.4 - 10.2 mg/dL 05/25/2025 12:06 PM [facility] Protein Total 7.1 6.0 - 8.3 g/dL 05/25/2025 12:06 PM [facility] Albumin 3.8 3.4 - 5.0 g/dL 05/25/2025 12:06 PM [facility] Bilirubin Total 0.5 0.2 - 1.2 mg/dL 05/25/2025 12:06 PM [facility] Alkaline Phosphatase 66 40 - 150 U/L 05/25/2025 12:06 PM [facility] ALT 12 5 - 55 U/L 05/25/2025 12:06 PM [facility] AST 17 5 - 34 U/L 05/25/2025 12:06 PM [facility] Anion Gap 1(L) 6 - 16 05/25/2025 12:06 PM [facility] BUN/Creatinine Ratio 24(H) 7 - 23 05/25/2025 12:06 PM CDT [facility] Osmolality Calculated 289 275 - 295 mOsm/kg 05/25/2025 12:06 PM CDT [facility] Albumin/Globulin Ratio 1.2 1.1 - 2.3 05/25/2025 12:06 PM CDT [facility] eGFR by CKD-EPI >90 >=90 mL/min/1.7 3 m2 05/25/2025 12:06 PM CDT [facility] Comment:Estimated Glomerular Filtration Rate (eGFR) calculated using the CKD-EPI Creatinine Equation (2020), per the National Kidney Foundation and [place] [employer]ph[employer] recommendations. 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 2.Decreased caliber and degree of enhancement of the distal right internal carotid artery, likely due to occlusion of the proximal right ICA. 3.Significant stenoses of the bifurcation of the right M1 segment with occlusion of a M2 segment. These findings were discussed in detail with the patient's care provider, Dr Altamirano by Dr. Jara via telephone at 05/25/2025 11:55 AM with readback comprehension and verification. The report is dictated by Vandana Jara MD (plant operations vice president) I, Ignacia Perez MD have personally reviewed and interpreted this examination/study. > Interpreting Provider: Ignacia Perez MD on 05/25/2025 12:11 PM Narrative 05/25/2025 12:11 PM CDT PROCEDURE: CT ANGIO BRAIN NECK STROKE, DATE/TIME OF EXAM: 05/25/2025 11:18 AM, LOCATION [facility] INDICATION: R53.1: Weakness ADDITIONAL CLINICAL INFORMATION: Ordering Provider Reason For Exam: Technologist Note: Additional: EXAMINATION: 1. Computed tomographic (CT) angiography of the head with contrast 2. CT angiography of the neck with contrast TECHNIQUE: CT angiography of the head and neck was obtained after the uneventful administration of 100 mL Isovue-370 intravenous contrast. Three dimensional postprocessing was performed by the technologist and sent to the workstation for review. Stenosis measurements are based on NASCET criteria. CT dose reduction technique was used, including Automated Exposure Control. COMPARISON: Noncontrast head CT on the same day. FINDINGS: Non-angiographic findings: CT currently obtain CT noncontrast brain for detailed nonangiographic intracranial findings. No soft tissue abnormalities the neck. Advanced multilevel degenerative disc and joint disease in the cervical spine. Angiographic findings: Neck: There is atherosclerotic disease of the aortic arch. The configuration of the brachiocephalic vessels is typical. There is scattered atherosclerotic calcification of the innominate and subclavian arteries. There is scattered atherosclerotic disease in the right common carotid artery, the right carotid bifurcation and origin. There is occlusion of the right internal carotid artery just distal to its origin (series 6, image 73) with some degree of reconstitution by retrograde flow of the distal petrous segment and above. There is atherosclerotic disease in the left carotid bifurcation and origin of the left internal carotid artery without focal stenosis. Other than atherosclerotic calcifications in the distal left internal carotid artery, the left common and internal carotid arteries otherwise appear patent. Other than mild focal stenosis at their origins due to atherosclerotic disease, the cervical vertebral arteries are patent. The left vertebral artery is dominant. Head: The distal left internal carotid artery is patent. Decreased caliber and degree of enhancement of the distal right internal carotid artery, likely due to occlusion of the proximal right ICA. The anterior cerebral arteries are patent. The left middle cerebral artery is patent. There is significant stenoses of the bifurcation of the right M1 segment with occlusion of a M2 segment. The posterior cerebral arteries are patent with origin of the right posterior cerebral artery. The distal vertebral arteries are patent. The basilar artery is patent patent. No aneurysms are identified. Procedure Note Ignacia Perez MD - 05/25/2025 PROCEDURE: CT ANGIO BRAIN NECK STROKE, DATE/TIME OF EXAM: :18 AM, LOCATION [facility] INDICATION: R53.1: Weakness ADDITIONAL CLINICAL INFORMATION: Ordering Provider Reason For Exam: Technologist Note: Additional: EXAMINATION: 1. Computed tomographic (CT) angiography of the head with contrast 2. CT angiography of the neck with contrast TECHNIQUE: CT angiography of the head and neck was obtained after the uneventful administration of 100 mL Isovue-370 intravenous contrast.Three dimensional postprocessing was performed by the technologist and sent to the workstation for review. Stenosis measurements are based on NASCET criteria. CT dose reduction technique was used, including Automated Exposure Control. COMPARISON: Noncontrast head CT on the same day. FINDINGS: Non-angiographic findings: CT currently obtain CT noncontrast brain for detailed nonangiographic intracranial findings. No soft tissue abnormalities the neck. Advanced multilevel degenerative disc and joint disease in the cervical spine. Angiographic findings: Neck: There is atherosclerotic disease of the aortic arch. The configurationof the brachiocephalic vessels is typical. There is scatteredatherosclerotic calcification of the innominate and subclavian arteries. There isscattered atherosclerotic disease in the right common carotid artery, the right carotid bifurcation and origin. There is occlusion of the right internal carotid artery just distal to its origin (series 6, image 73) with some degree of reconstitution by retrograde flow of the distal petroussegment and above. There is atherosclerotic disease in the left carotid bifurcation and origin of the left internal carotid artery without focal stenosis. Other than atherosclerotic calcifications in the distal left internal carotid artery, the left common and internal carotid arteries otherwise appear patent. Other than mild focal stenosis at their origins due to atherosclerotic disease, the cervical vertebral arteries arepatent. The left vertebral artery is dominant. Head: The distal left internal carotid artery is patent. Decreased caliber and degree of enhancement of the distal right internal carotid artery,likely due to occlusion of the proximal right ICA. The anterior cerebral arteries are patent. The left middle cerebral artery is patent. There issignificant stenoses of the bifurcation of the right M1 segment with occlusion of aM2 segment. The posterior cerebral arteries are patent with origin of the right posterior cerebral artery. The distal vertebral arteries are patent. The basilar artery is patent patent. No aneurysms areidentified. IMPRESSION: 1.Occlusion of the right internal carotid artery just distal to itsorigin (series 6, image 73) with some degree of reconstitution by retrogradeflow of the distal petrous segment and above. 2.Decreased caliber and degree of enhancement of the distal rightinternal carotid artery, likely due to occlusion of the proximal right ICA. 3.Significant stenoses of the bifurcation of the right M1 segment with occlusion of a M2 segment. These findings were discussed in detail with the patient's careprovider, Dr Altamirano by Dr. Jara via telephone at 05/25/2025 11:55 AMwith readback comprehension and verification. The report is dictated by Vandana Jara MD (plant operations vice president) I, Ignacia Perez MD have personally reviewed and interpreted this examination/study. > Interpreting Provider: Ignacia Perez MD on 05/25/2025 12:11 PM us Indio Leavitt MD CT ORDERABLES Final Result * INR WHOLE BLOOD - POINT OF CARE (IP) STROKE (05/25/2025 11:07 AM CDT) INR 1.0 0.9 - 1.2 05/25/2025 11:09 AM CDT [facility] Device [id number] 05/25/2025 11:09 AM CDT [facility] [employer] ID [id number] 05/25/2025 11:09 AM T [facility] Blood BLOOD SPECIMEN / Unknown 05/25/2025 11:07 AM CDT 05/25/2025 11:09 AM CDT us Provider Unknown LAB - POINT OF CARE ORDERABLES Final Result [facility] [address] [place] [phone], [facility] [phone] * ISTAT CREATININE (05/25/2025 11:07 AM CDT) Creatinine POCT 0.90 0.60 - 1.30 mg/dL 05/25/2025 11:09 AM T [facility] eGFR by CKD-EPI >90 >90 mL/min/1.7 3 m2 05/25/2025 11:09 AM CDT [facility] Blood BLOOD SPECIMEN / Unknown 05/25/2025 11:07 AM CDT 05/25/2025 11:09 AM CDT us Provider Unknown LAB - POINT OF CARE ORDERABLES Final Result [facility] [address] [place] [address], [facility] [phone] * CT BRAIN - Stroke (05/25/2025 11:01 AM CDT) Anatomical Region Laterality Modality Head Computed Tomogra phy 05/25/2025 11:1 1 AM CDT Impressions 05/25/2025 11:19 AM CDT IMPRESSION: Subtle effacement of the right sylvian fissure compared to the left could be secondary to evolving right MCA territory infarction versus artifact, attention recommended on follow-up imaging or MRI could be performed for accurate evaluation of the extent of the infarction. Focal area of hypodensity noted along the distal M1 segment extending into the inferior division of the M2 segment of the right MCA concerning for occlusion, attention recommended on follow-up angiogram imaging. These findings were discussed with patient's care provider, Dr. Pearson/stroke team, by on 05/25/2025 11:09 AM with read back verification. > Interpreting Provider: Flora Gonzalez MD on 05/25/2025 11:19 AM Narrative 05/25/2025 11:19 AM CDT PROCEDURE: CT BRAIN STROKE, DATE/TIME OF EXAM: 05/25/2025 11:05 AM, LOCATION [facility] INDICATION: R53.1: Weakness ADDITIONAL CLINICAL INFORMATION: Ordering Provider Reason For Exam: Left-sided weakness, facial droop Technologist Note: Additional: COMPARISON: None. TECHNIQUE: Noncontrast CT brain was performed utilizing standard protocol. CT dose reduction technique was used, including Automated Exposure Control. FINDINGS: No acute intracranial hemorrhage or intra- or extra-axial fluid collections are identified. The ventricles are of normal size, shape, and morphology. The basal cisterns are patent. No mass effect or midline shift is seen. Subtle effacement of the right sylvian fissure compared to the left could be secondary to evolving right MCA territory infarction versus artifact, (image 19, series 4) attention recommended on follow-up imaging or MRI could be performed for accurate evaluation of the extent of the infarction. Focal area of hypodensity noted along the distal M1 segment of the right MCA concerning for occlusion, (image 34, series 6) with slight extension into the right M2 segment. Attention recommended on follow-up angiogram imaging. The sotelo-white matter differentiation otherwise appears normal. The visualized portions of the orbits, and mastoids appear normal. Moderate opacification of the mastoid ethmoidal air cells. Frothy secretions noted in the sphenoid sinus. Near complete opacification of the right maxillary sinus. No acute calvarial fracture is identified. Procedure Note Flora Gonzalez MD - 05/25/2025 PROCEDURE: CT BRAIN STROKE, DATE/TIME OF EXAM: 05/25/2025 11:05 AM, LOCATION [facility] INDICATION: R53.1: Weakness ADDITIONAL CLINICAL INFORMATION: Ordering Provider Reason For Exam: Left-sided weakness, facial droop Technologist Note: Additional: COMPARISON: None. TECHNIQUE: Noncontrast CT brain was performed utilizing standard protocol. CT dose reduction technique was used, including Automated ExposureControl. FINDINGS: No acute intracranial hemorrhage or intra- or extra-axial fluidcollections are identified. The ventricles are of normal size, shape, andmorphology. The basal cisterns are patent. No mass effect or midline shift is seen. Subtle effacement of the right sylvian fissure compared to the leftcould be secondary to evolving right MCA territory infarction versus artifact, (image 19, series 4) attention recommended on follow-up imaging or MRI could be performed for accurate evaluation of the extent of theinfarction. Focal area of hypodensity noted along the distal M1 segment of the right MCA concerning for occlusion, (image 34, series 6) with slight extension into the right M2 segment. Attention recommended on follow-up angiogram imaging. The sotelo-white matter differentiation otherwise appears normal. The visualized portions of the orbits, and mastoids appear normal.Moderate opacification of the mastoid ethmoidal air cells. Frothy secretionsnoted in the sphenoid sinus. Near complete opacification of the rightmaxillary sinus. No acute calvarial fracture is identified. IMPRESSION: Subtle effacement of the right sylvian fissure compared to the leftcould be secondary to evolving right MCA territory infarction versus artifact, attention recommended on follow-up imaging or MRI could be performed for accurate evaluation of the extent of the infarction. Focal area of hypodensity noted along the distal M1 segment extendinginto the inferior division of the M2 segment of the right MCA concerning for occlusion, attention recommended on follow-up angiogram imaging. These findings were discussed with patient's care provider, Dr. Pearson/stroke team, by on 05/25/2025 11:09 AM with read back verification. > Interpreting Provider: Flora Gonzalez MD on 05/25/2025 11:19 AM us Indio Leavitt MD CT ORDERABLES Final Result from Last 3 Months Insurance MEDICARE MEDICARE Advance Directives * Full Code (Latest Code Status on File) Date Activated Date Inactivated Comments 05/25/2025 11:44 AM 05/25/2025 10:42 PM Care Teams Insurance Legal Assistant Relationship Specialty Start Date End Date Anita Roach MD [id number] [place] [address] PCP - General 07/14/22
== END 2025-06-03 08:18 | disposition home or self-care (01) ==
PROVIDERS: PCP Family Medicine; Visit Provider Family Medicine
DX: G45.9 Transient cerebral ischemic attack, unspecified (principal); R93.0 Abnormal findings on diagnostic imaging of skull and head, not elsewhere classified
CPT/HCPCS: 70553; A9577

== ENCOUNTER 2025-07-30 07:28 | Outpatient (CLI) | payer MEDICARE, OTHER, SELFPAY ==
--- NOTE | 2025-07-30 08:25 | ECHO_ITS ---
Patient Info Name: Guzman Read Age: 70 years : 1955 Gender: Male Ht: 72 in Wt: 175 lbs BSA: 2.01 m2 HR: 55 bpm BP: 135 / 95 mmHg Technical Quality: Good Exam Date: 07/30/2025 8:35 AM Patient Status: O Admit Date: 07/30/2025 Exam Type: CA echo doppler w bubble study Complete two-dimensional, color flow and Doppler transthoracic echocardiogram is performed with agitated saline. Punch Card Operator: Hina Jimenez Attending Provider: Anita Roach Contrast/Agitated Saline Contrast/Ag. Saline: Agitated Saline Amount: 20.00 ml Summary 1. Left ventricular chamber dimension is normal. 2. Left ventricular systolic function is normal, estimated at 60-65. 3. The left ventricular diastolic function is grade I diastolic dysfunction. 4. E/e' 6 is not elevated. 5. There is trace mitral valve regurgitation. Left Ventricle E/e' 6 is not elevated. Left ventricular chamber dimension is normal. Left ventricular systolic function is normal, estimated at 60-65. The left ventricular diastolic function is grade I diastolic dysfunction. Right Ventricle Right ventricular chamber dimension is normal. Right ventricular systolic function is normal and with normal TAPSE 2.2 cm. Left Atria Left atrial chamber dimension is normal. Right Atria Right atrial chamber dimension is normal. Atrial Septum Intact interatrial septum visualized by 2D and agitated saline imaging. Agitated saline injection with and without valsalva maneuver opacified right side cardiac chambers without shunt to left side cardiac chambers. Aortic Valve The aortic valve is trileaflet. There is no aortic valve stenosis. There is no aortic valve regurgitation. Pulmonic Valve There is no pulmonic regurgitation. Mitral Valve There is no mitral valve stenosis. There is trace mitral valve regurgitation. Tricuspid Valve There is no tricuspid valve regurgitation. Pericardium/Pleural There is no pericardial effusion. Inferior Vena Cava Normal inferior vena cava with >50% collapse upon inspiration consistent with normal right atrial pressure, 5 mmHg. Aorta The aortic root size at the sinus of Valsalva is normal. Left Ventricular Outflow Tract Name Value Normal LVOT 2D LVOT Diameter 2.0 cm LVOT Doppler LVOT Peak Velocity 99 cm/s LVOT Peak Gradient 4 mmHg LVOT Mean Gradient 2 mmHg LVOT VTI 24 cm LVOT Stroke Volume 77 ml LVOT CO 4.2 l/min LVOT CI 2.1 l/min/m2 Pulmonic Valve Name Value Normal PV Doppler PV Peak Velocity 145 cm/s PV Peak Gradient 8 mmHg Mitral Valve Name Value Normal MV Diastolic Function MV E Peak Velocity 56 cm/s MV A Peak Velocity 69 cm/s MV E/A 0.8 MV Decel Time (PW) 230 ms MV Annular TDI MV E/e' (Septal) 6.3 MV E/e' (Lateral) 6.4 MV E/e' (Average) 6.4 Tricuspid Valve Name Value Normal Estimated PAP/RSVP RA Pressure 5 mmHg <=5 Aortic Valve Name Value Normal AV Doppler AV Peak Velocity 149 cm/s AV Peak Gradient 9 mmHg AV Area (Cont Eq Hermann) 2.1 cm2 AV DI (Hermann) 0.67 AV Regurgitation 2D LVOT Area 3.2 cm2 Ventricles Name Value Normal LV Dimensions 2D/MM IVS Diastolic Thickness (2D) 0.9 cm 0.6-1.0 LVID Diastole (2D) 5.2 cm 4.2-5.8 LVIW Diastolic Thickness (2D) 0.8 cm 0.6-1.0 LVID Systole (2D) 3.2 cm 2.5-4.0 LVOT Diameter 2.0 cm LV Mass (2D Cubed) 163.64 g 88.00-224.00 LV Mass Index (2D Cubed) 81 g/m2 49-115 Relative Wall Thickness (2D) 0.33 <=0.42 LV Fractional Shortening/Ejection Fraction 2D/MM LV Fractional Shortening (2D) 39 % 25-43 LV EF (2D Teichjayceez) 69 % LV Diastolic Volume (4C MOD) 112 ml LV EF (4C MOD) 54 % LV Diastolic Volume (2C MOD) 128 ml LV EF (2C MOD) 60 % LV Diastolic Volume (BP MOD) 124 ml 62-150 LV Diastolic Volume Index (BP MOD) 62 ml/m2 34-74 LV Systolic Volume (BP MOD) 53 ml 21-61 LV Systolic Volume Index (BP MOD) 26 ml/m2 11-31 LV EF (BP MOD) 58 % 52-72 LV Diastolic Length (4C) 7.4 cm LV Systolic Length (4C) 5.9 cm LV Stroke Volume (4C MOD) 60 ml Atria Name Value Normal LA Dimensions LA Volume (4C A-L) 52 ml LA Volume (BP A-L) 55 ml RA Dimensions RA Area (4C) 12.7 cm2 <=18.0 Report Signatures
== END 2025-07-30 07:29 | disposition home or self-care (01) ==
LOC: ANHCARD 07:29
PROVIDERS: PCP Family Medicine; Visit Provider Family Medicine
DX: I63.9 Cerebral infarction, unspecified (principal)
CPT/HCPCS: 93306; 96375